=== PATIENT | female | born 1995 | race Caucasian/White ===

== ENCOUNTER 2016-11-24 15:46 | Emergency (ER) | payer BC, OTHER ==
--- NOTE | 2016-11-24 16:01 | EDM.PDOC ---
ED HPI GENERAL MEDICAL PROBLEM - General Chief Complaint: Headache Stated Complaint: HEADACHES FOR FEW DAYS, NAUSEA,VOMITTING Time Seen by Provider: 11/24/16 16:00 Source of Information: Reports: Patient, Family, RN, RN Notes Reviewed History Limitations: Reports: No Limitations - History of Present Illness INITIAL COMMENTS - FREE TEXT/NARRATIVE: Patient presents to the ED at [facility] complaining of a posterior headache that started about 3 days ago. Patient has not tried any OTC medications. Patient states she had headaches as a child. She states she has not had a headache in a very long time. Today, this headache feels like the worse she has had in a long time. She also feels extremely nauseated. She had not vomited. No balance problems. No ataxia. Vision seems slightly blurry at times. No radiation of the pain. No head injury or trauma. No recent head surgeries. Onset Date: 11/21/16 Duration: Constant, Getting Worse Location: Reports: Head Quality: Reports: Pressure, Stabbing, Throbbing Improves with: Reports: None Worsens with: Reports: Movement Context: Denies: Sick Contact, Trauma Associated Symptoms: Reports: Nausea/Vomiting Occipital Head Pain Score (Numeric/FACES): 8 - Related Data Allergies Allergy/AdvReac Type Severity Reaction Status Date / Time cat dander Allergy Cannot Verified 02/25/15 16:34 Remember cephalexin monohydrate Allergy Rash Verified 02/25/15 16:34 [From Keflex] Sulfa (Sulfonamide Allergy Rash Verified 02/25/15 16:34 Antibiotics) sumatriptan [From Imitrex] Allergy Rash Verified 02/25/15 16:34 sumatriptan succinate Allergy Rash Verified 02/25/15 16:34 [From Imitrex] Home Meds: Home Meds Nitrofurantoin Macrocrystal [Macrodantin] 100 mg PO BID #12 capsule 11/24/16 [Rx ] Past Medical History - Past Health History Medical/Surgical History: Denies Medical/Surgical History Social & Family History - Tobacco Use Smoking Status *Q: Never Smoker ED ROS GENERAL - Review of Systems Review Of Systems: See Below Constitutional: Denies: Fever, Chills, Weakness HEENT: Reports: Vision Change Respiratory: Denies: Shortness of Breath, Cough Cardiovascular: Denies: Chest Pain, Palpitations GI/Abdominal: Reports: Nausea, Vomiting. Denies: Abdominal Pain, Diarrhea Skin: Reports: No Symptoms Neurological: Reports: Headache. Denies: Numbness, Paresthesia, Tingling - Physical Exam Exam: See Below Exam Limited By: No Limitations General Appearance: Alert, No Apparent Distress Eye Exam: Bilateral Eye: EOMI, Normal Inspection, PERRL Ears: Normal External Exam, Normal Canal, Normal TMs Head Exam: Atraumatic, Normocephalic Neck: Supple Respiratory/Chest: No Respiratory Distress, Lungs Clear, Normal Breath Sounds Cardiovascular: Regular Rate, Rhythm GI/Abdominal: Soft, Non-Tender, Abnormal Bowel Sounds (Hypoactive) Neuro Exam (Abbreviated): Alert, Oriented, Normal Cognition, No Motor/Sensory Deficits Skin Exam: Warm, Dry, Intact, Normal Color, No Rash Course - Vital Signs Last Recorded V/S: Last Vital Signs Temp 37.3 C 11/24/16 15:50 Pulse 87 11/24/16 15:50 Resp 16 11/24/16 15:50 BP 119/71 11/24/16 15:50 Pulse Ox - Orders/Labs/Meds Orders: Active Orders 24 hr Category Date Time Status Head wo Cont [CT] Stat Exams 11/24/16 16:06 Ordered Sodium Chloride 0.9% [Saline Flush] Med 11/24/16 16:03 Active 10 ml FLUSH ASDIRECTED PRN chlorproMAZINE [Thorazine] Med 11/24/16 16:52 Once 50 mg IM ONETIME ONE Peripheral IV Insertion Adult [OM.PC] Routine Oth 11/24/16 16:03 Ordered Medication Orders Chlorpromazine HCl (Thorazine) 50 mg IM ONETIME ONE Stop: 11/24/16 17:54 Last Admin: 11/24/16 17:04 Dose: 50 mg Sodium Chloride (Saline Flush) 10 ml FLUSH ASDIRECTED PRN PRN Reason: Keep Vein Open Labs: Laboratory Tests 11/24/16 11/24/16 11/24/16 Range/Units 16:25 16:25 16:55 WBC 5.2 (4.0-10.0) x10^3/uL RBC 4.89 (4.00-5.50) x10^6/uL Hgb 12.1 (12.0-16.0) g/dL Hct 38.2 (33.0-47.0) % MCV 78.1 (78.0-93.0) fL MCH 24.7 L (26.0-32.0) pg MCHC 31.7 L (32.0-36.0) g/dL RDW Coeff of Jocelynn 15.5 H (10.0-15.0) % Plt Count 202 (130-400) x10^3/uL Neut % (Auto) 68.0 (50.0-80.0) % Lymph % (Auto) 21.8 L (25.0-50.0) % King % (Auto) 7.7 (2.0-11.0) % Eos % (Auto) 2.1 (0.0-4.0) % Baso % (Auto) 0.4 (0.2-1.2) % Sodium 139 (136-145) mmol/L Potassium 4.0 (3.5-5.1) mmol/L Chloride 102 (98-107) mmol/L Carbon Dioxide 27 (21-32) mmol/L BUN 8 (7-18) mg/dL Creatinine 1.0 (0.55-1.02) mg/dL Est Cr Clr Drug Dosing TNP Estimated GFR (MDRD) > 60 Glucose 100 (74-106) mg/dL Calcium 8.4 L (8.5-10.1) mg/dL Urine Color (YELLOW) Urine Appearance (CLEAR) Urine pH (5.0-8.0) Ur Specific [place] Urine Protein (NEGATIVE) mg/dL Urine Glucose (UA) (NEGATIVE) mg/dL Urine Ketones (NEGATIVE) mg/dL Urine Occult Blood (NEGATIVE) Urine Nitrite (NEGATIVE) Urine Bilirubin (NEGATIVE) Urine Urobilinogen (0.2) EU/dL Ur Leukocyte Esterase (NEGATIVE) Urine RBC (NOT SEEN) /HPF Urine WBC (NOT SEEN) /HPF Ur Squamous Epith Cells (NEGATIVE) /HPF Urine Bacteria (NEGATIVE) /HPF Urine Mucus (NEGATIVE) /LPF Urine HCG, Qual (NEGATIVE) Urine Opiates Screen Negative (NEGATIVE) Ur Buprenorphine Scrn Negative (NEGATIVE) Ur Oxycodone Screen Negative (NEGATIVE) Urine Methadone Screen Negative (NEGATIVE) Ur Barbiturates Screen Negative (NEGATIVE) Ur Tricyclics Screen Negative (NEGATIVE) Ur Amphetamine Screen Negative (NEGATIVE) U Methamphetamines Scrn Negative (NEGATIVE) Urine MDMA Screen Negative (NEGATIVE) U Benzodiazepines Scrn Negative (NEGATIVE) U Cocaine Metab Screen Negative (NEGATIVE) U Marijuana (THC) Screen Negative (NEGATIVE) 11/24/16 11/24/16 Range/Units 16:55 16:55 WBC (4.0-10.0) x10^3/uL RBC (4.00-5.50) x10^6/uL Hgb (12.0-16.0) g/dL Hct (33.0-47.0) % MCV (78.0-93.0) fL MCH (26.0-32.0) pg MCHC (32.0-36.0) g/dL RDW Coeff of Jocelynn (10.0-15.0) % Plt Count (130-400) x10^3/uL Neut % (Auto) (50.0-80.0) % Lymph % (Auto) (25.0-50.0) % King % (Auto) (2.0-11.0) % Eos % (Auto) (0.0-4.0) % Baso % (Auto) (0.2-1.2) % Sodium (136-145) mmol/L Potassium (3.5-5.1) mmol/L Chloride (98-107) mmol/L Carbon Dioxide (21-32) mmol/L BUN (7-18) mg/dL Creatinine (0.55-1.02) mg/dL Est Cr Clr Drug Dosing Estimated GFR (MDRD) Glucose (74-106) mg/dL Calcium (8.5-10.1) mg/dL Urine Color Yellow (YELLOW) Urine Appearance Clear (CLEAR) Urine pH 6.5 (5.0-8.0) Ur Specific [place] 1.025 Urine Protein 30 H (NEGATIVE) mg/dL Urine Glucose (UA) Negative (NEGATIVE) mg/dL Urine Ketones Negative (NEGATIVE) mg/dL Urine Occult Blood Small H (NEGATIVE) Urine Nitrite Negative (NEGATIVE) Urine Bilirubin Negative (NEGATIVE) Urine Urobilinogen 0.2 (0.2) EU/dL Ur Leukocyte Esterase Trace H (NEGATIVE) Urine RBC 10-20 H (NOT SEEN) /HPF Urine WBC 5-10 H (NOT SEEN) /HPF Ur Squamous Epith Cells Moderate H (NEGATIVE) /HPF Urine Bacteria Few H (NEGATIVE) /HPF Urine Mucus Moderate H (NEGATIVE) /LPF Urine HCG, Qual Negative (NEGATIVE) Urine Opiates Screen (NEGATIVE) Ur Buprenorphine Scrn (NEGATIVE) Ur Oxycodone Screen (NEGATIVE) Urine Methadone Screen (NEGATIVE) Ur Barbiturates Screen (NEGATIVE) Ur Tricyclics Screen (NEGATIVE) Ur Amphetamine Screen (NEGATIVE) U Methamphetamines Scrn (NEGATIVE) Urine MDMA Screen (NEGATIVE) U Benzodiazepines Scrn (NEGATIVE) U Cocaine Metab Screen (NEGATIVE) U Marijuana (THC) Screen (NEGATIVE) Meds: Medications Generic Name Dose Route Start Last Admin Trade Name Freq PRN Reason Stop Dose Admin Chlorpromazine HCl 50 mg 11/24/16 16:52 11/24/16 17:04 Thorazine IM 11/24/16 17:54 50 mg ONETIME ONE Administration Sodium Chloride 10 ml 11/24/16 16:03 Saline Flush FLUSH ASDIRECTED PRN Keep Vein Open Discontinued Medications Generic Name Dose Route Start Last Admin Trade Name Freq PRN Reason Stop Dose Admin Sodium Chloride 1,000 mls @ 999 mls/hr 11/24/16 16:03 Normal Saline IV 11/24/16 17:03 ONETIME ONE Chlorpromazine HCl 50 mg/ 52 mls @ 50 mls/hr 11/24/16 16:07 11/24/16 16:56 Sodium Chloride IV 11/24/16 17:09 Not Given ONETIME ONE Chlorpromazine HCl 50 mg/ 52 mls @ 50 mls/hr 11/24/16 16:15 11/24/16 16:17 Sodium Chloride IV 11/24/16 17:17 Not Given ONETIME ONE Nitrofurantoin Macrocrystals 1 packet 11/24/16 17:15 Take Home: Nitrofur King/Ma 100 Mg, 2 Pack PO 11/24/16 17:16 ONETIME ONE Ondansetron HCl 4 mg 11/24/16 16:03 11/24/16 16:56 Zofran IVPUSH 11/24/16 16:04 Not Given ONETIME ONE Ondansetron HCl 4 mg 11/24/16 16:51 11/24/16 17:00 Zofran IM 11/24/16 16:52 4 mg ONETIME ONE Administration Ondansetron HCl 1 packet 11/24/16 17:13 Take Home: Ondansetron Odt 4 Mg, 2 Tab Pack PO 11/24/16 17:14 ONETIME ONE Departure - Departure Time of Disposition: 17:50 Disposition: Home, Self-Care 01 Clinical Impression: Dehydration Urinary tract infection Qualifiers: Urinary tract infection type: acute cystitis Hematuria presence: with hematuria Qualified Code(s): N30.01 - Acute cystitis with hematuria Headache Qualifiers: Headache type: unspecified Headache chronicity pattern: acute headache Intractability: not intractable Qualified Code(s): R51 - Headache - Discharge Information Prescriptions: Nitrofurantoin Macrocrystal [Macrodantin] 100 mg PO BID #12 capsule Instructions: General Headache Without Cause, [id number], Dehydration, Adult , [id number], Urinary Tract Infection, Adult Referrals: Licha Parker PA-C [Primary Care Provider] - Forms: ED Department Discharge Additional Instructions: 1. Stay well hydrated and rest 2. Take medications for the full coarse, even if you are feeling better 3. See your Primary as symptoms warrant - Problem List Review Problem List Initiated/Reviewed/Updated: Yes - My Orders Last 24 Hours: My Active Orders 11/24/16 16:03 Sodium Chloride 0.9% [Saline Flush] 10 ml FLUSH ASDIRECTED PRN Peripheral IV Insertion Adult [OM.PC] Routine 11/24/16 16:06 Head wo Cont [CT] Stat 11/24/16 16:52 chlorproMAZINE [Thorazine] 50 mg IM ONETIME ONE - Assessment/Plan Last 24 Hours: My Active Orders 11/24/16 16:03 Sodium Chloride 0.9% [Saline Flush] 10 ml FLUSH ASDIRECTED PRN Peripheral IV Insertion Adult [OM.PC] Routine 11/24/16 16:06 Head wo Cont [CT] Stat 11/24/16 16:52 chlorproMAZINE [Thorazine] 50 mg IM ONETIME ONE
[2016-11-24] MEDS ORDERED: Sodium Chloride 0.9% 1,000 ML IV ONE (16:03)
[2016-11-24] MEDS ORDERED: Sodium Chloride 0.9% 10 ML Syringe FLUSH PRN (16:03)
[2016-11-24] MEDS ORDERED: Ondansetron 4 MG/2 ML SDV IVPUSH ONE (16:03)
[2016-11-24] MEDS ORDERED: Ondansetron 4 MG/2 ML SDV IM ONE (16:51)
[2016-11-24 16:59] LABS: CHLORIDE,CL 102 mmol/L (98-107); SODIUM,NA 139 mmol/L (136-145)
[2016-11-24] MEDS ORDERED: Take Home: Ondansetron 4 MG Tab.DIS, 2 Tab Pack PO ONE (17:13)
[2016-11-24] MEDS ORDERED: Take Home: Nitrofurantoin Monohydrate/Macrocrystalline 100 MG, 2 Cap Pack PO ONE (17:15)
[2016-11-24 17:40] VITALS: BP 119/71
== END 2016-11-24 18:05 | disposition home or self-care (01) ==
LOC: VM.ED 15:46
DX: R51 Headache (principal); N30.01 Acute cystitis with hematuria; E86.0 Dehydration; Z88.1 Allergy status to other antibiotic agents; Z88.2 Allergy status to sulfonamides
CPT/HCPCS: 36415; 70450; 80048; 80305; 81001; 81025; 85025; 96372; 99284; A9270; J2405; J3230

== ENCOUNTER 2017-02-13 14:35 | Emergency (ER) | payer BC ==
[2017-02-13] MEDS ORDERED: Activated Charcoal/Sorbitol Susp 50 GM/240 ML Bottle PO ONE (14:44)
[2017-02-13] MEDS ORDERED: Sodium Chloride 0.9% 10 ML Syringe FLUSH PRN (15:03)
[2017-02-13] MEDS ORDERED: Sodium Chloride 0.9% 1,000 ML IV ONE (15:07)
[2017-02-13 16:06] LABS: CHLORIDE,CL 105 mmol/L (98-107); SODIUM,NA 139 mmol/L (136-145)
[2017-02-13 16:21] LABS: ACETAMINOPHEN 0 ug/ml (10-30)
[2017-02-13 17:13] VITALS: BP 108/62
--- NOTE | 2017-02-14 07:14 | ER ---
Date of Service: 02/13/2017 SUBJECTIVE: Lizett presents to the emergency room with complaints of polydrug overdose. The patient states that she took 1 regular size bottle of NyQuil. She states that she also took an unknown number of 81 mg aspirin. She states that she is not sure of the specific number, but states that it is likely around 30. She states that she also took a total of 500 mg of hydroxyzine and consumed a small bottle of hard liquor. The patient states that she has attempted overdose in the past, that being last March. At that time she states that she took "ZzzQuil" which is liquid diphenhydramine. She states that she took these medications approximately 15 to 30 minutes prior to coming to the ER. She states that she has also been cutting herself recently and states that she has been doing this for the past several weeks. She states that she does feel acutely suicidal, but will not get into why she feels this way. She does have a longstanding history of anxiety and depression and sees "Dr. Josue" at [facility] in [place]. She is unable to call, recall or spell his last name. She states that she is supposed to be taking Wellbutrin, gabapentin, hydroxyzine for her depression, but she has not been taking this for an extended period of time. Overall, the patient stated on arrival she was feeling well. She was not experiencing any chest pain, shortness of breath or significant fatigue. PAST MEDICAL HISTORY: 1. Anxiety. 2. Depression. 3. History of suicidal ideation. 4. History of self-harm secondary to cutting. MEDICATIONS: None. Please see nurse's notes. ALLERGIES: 1. Cephalexin. 2. Sulfa. 3. Imitrex. REVIEW OF SYSTEMS: General: Denies any fever or chills. HEENT: No sore throat, rhinorrhea or congestion. Respiratory: No shortness breath. Cardiac: Denies any substernal chest pain. No jaw, arm, neck, or back pain. GI: No nausea, vomiting, or diarrhea. No melena, hematochezia, or hematemesis. : Denies any dysuria. Musculoskeletal: No myalgias or arthralgias. Neurologic: No fainting, blackouts, or lightheadedness prior to or after the event. PHYSICAL EXAMINATION: General: This is a 21-year-old female patient, in no acute distress. Vital Signs: Blood pressure initially was approximately 130s/70s, heart rate 81, respiratory rate 16, O2 saturations 98%. Skin: Warm, pink, and dry. HEENT. Head is normocephalic, atraumatic. Eyes, PERRLA. Extraocular movements are intact. Mouth, oral mucosa is moist. Lungs: Clear to auscultation. Heart: Regular rate and rhythm. Normal S1, S2. No S3, S4, murmurs, clicks, or rubs. Abdomen: Soft, nontender. There is no hepatosplenomegaly or masses noted. Extremities: Without edema. Neurologic: The patient is alert, oriented, answering all questions appropriately. Her speech is fluent. Her gait is within normal limits. DIAGNOSTIC DATA: EKG was obtained showing a sinus rhythm without any acute ST or T-wave abnormalities. PA and lateral chest x-ray did not reveal any acute infiltrates. LABORATORY DATA: Labs consisting of CBC, acetaminophen, ABG, comprehensive metabolic panel, CK-MB, ETOH, urine HCG, INR, lactic acid, salicylate level, troponin, UA, and urine drug screen are all pending. This will be sent with the patient's information when transferred to [place]. EMERGENCY ROOM COURSE: IV access was established. The patient was found to be alert in maintaining her own airway. She was able to consume 50 g of activated charcoal without difficulty. She was given 1000 mL bolus of normal saline and then started on a normal saline at 125 an hour. She remained stable in my care in the emergency room. ASSESSMENT: Polydrug overdose. PLAN: The patient will be transferred to [facility] in [place]. Salicylate lab is a send out at this facility, so we will need to have her transfer to monitor this. I did speak with Poison Control and they did advise checking a salicylate level on admission and also rechecking 1 in 6 hours and monitoring the patient for at least 6 hours or longer depending before disposition the patient. The patient will be transported by [facility] ground ambulance. MWK: 02/13/2017 16:04:25 MODL: 02/13/2017 16:32:52 /[id number]
== END 2017-02-13 16:15 | disposition short-term general hospital (02) ==
LOC: EEVIPCON 14:35 → VM.ED 14:35
DX: T39.011A Poisoning by aspirin, accidental (unintentional), initial encounter (principal); T43.591A Poisoning by other antipsychotics and neuroleptics, accidental (unintentional), initial encounter; F41.9 Anxiety disorder, unspecified; F32.9 Major depressive disorder, single episode, unspecified; Z79.82 Long term (current) use of aspirin; Z88.1 Allergy status to other antibiotic agents; Z88.2 Allergy status to sulfonamides
CPT/HCPCS: 36415; 71010; 80053; 80305; 81001; 81025; 82550; 83605; 84484; 85025; 85610; 93005; 94760; 96360; 99285; G0480; J7030